=== PATIENT | female | born 1935 | race Caucasian/White ===

== ENCOUNTER 2020-11-02 22:43 | Inpatient (IN) | payer OTHER ==
[~2020-11-02] VITALS: Ht 167.6 cm; Wt 71.1 kg
--- NOTE | ~2020-11-02 | EMS ---
[place] [address] EMS Patient Care Report Name: MARI MA Room #: REG VALENCIA Mcgee#: [id number] Admission: 11/02/20 Attend Phys: Discharge: Date of : 34 Report #: [id number] THIS REPORT FOR: //name// Report Transmitted: 11/02/2020 23:29 EMS Care Summary [place], [place]/[facility] Incident [id number] @ 11/02/2020 22:07 Incident Location [address] [place] [address] Patient MARI MA Female, 84 Years 1935 Patient Address [address] [place] [address] Patient History Dementia,Hyperlipidemia, Patient Allergies Sulfonamides allergy, Patient Medications Aspirin, Lovastatin, Chief Complaint gi bleed Disposition Transported No Lights/[place] Dispatch Reason Hemorrhage/Laceration Transported To [facility] Narrative 84 y/o female found sitting in chair @ kitchen table. [facility] pumper 28 on scene. pt c/o bloody emesis. pt threw up large amount of blood on floor c 3 extra large clots. at least 500 cc or more of blood. pt has not hx of gi bleed in the past per family. pt has not had any complaints or illness recently per [address] [address] EMS Patient Care Report Name: MARI MA Room #: REG Arely#: [id number] Admission: 11/02/20 Attend Phys: Discharge: Date of : 34 Report #: [id number] family. pt's et daughter are on scene. pt has hx of dementia. pt is happy one moment et then will become combative et agitated the next. pt is alert to person. pt denies any pain or soa. family states that pt said she was hot et took her shirt off et then threw up shortly after that. pt rips b/p cuff off her arm in the house et becomes agitated when trying to get a b/p. pt insists on getting up on her own et sitting on the stretcher. pt's family states that she does get combative et is very independent c doing things. pt is situated on the stretcher et moved to unit. we are able to get a b/p in the unit. iv attempted. pt's is council et becomes agitated et frustrated that he can't hear ems talking c a mask on. we attempt to speak louder to help him hear. pt's family will meet her @ the er. pt remains stable enroot c no problems. pt care is transferred to [facility] nursing staff. Initial Vitals @22:25P: 81,R: 18,BP: 83/57,Pain: 0/10,GCS: 14,Glucose: 153,SpO2: 94,Revised Trauma: 11, @22:32P: 91,R: 18,BP: 84/66,Pain: 0/10,GCS: 14,SpO2: 94,Revised Trauma: 11, Assessments @22:17MENTAL:Person Oriented,SKIN:HEENT:Eyes: Left Pupil: 4-mm,Eyes: Right Pupil: 4-mm,Head/Face: No Abnormalities,Neck/Airway: No Abnormalities,LUNG SOUNDS:General: Vomiting,General: Other,ABDOMEN:General: Vomiting,General: Other,PELVIS//GI:No Abnormalities,EXTREMITIES:Capillary Refill: Right Upper: < 2 Sec,Capillary Refill: Right Lower: < 2 Sec,Capillary Refill: Left Upper: < 2 Sec,Capillary Refill: Left Lower: < 2 Sec,Left Arm: No Abnormalities,Right Arm: No Abnormalities,Left Leg: No Abnormalities,Right Leg: No Abnormalities,PULSE:Brachial: 2+ Normal,Carotid: 2+ Normal,Radial: 1+ Thready,NEURO:No Abnormalities, Impression Gastrointestinal hemorrhage Procedures @22:17ALS AssessmentResponse: UnchangedSucceeded@22:29Saline Lock 0cc (20 ga) Site: Antecubital-LeftResponse: UnchangedFailed Timeline 22:07,Call Received 22:07,Dispatch Notified 22:07,Dispatched 22:09,En Route 22:15,On Scene 22:17,At Patient 22:17,ALS Assessment,Response: UnchangedSucceeded, 22:25,BP: 83/57 M,PULSE: 81,RR: 18 R,SPO2: 94 Ox,ETCO2: ,B,PAIN: 0,GCS: 14, [facility] [address] [place] [address] EMS Patient Care Report Name: MARI MA Room #: REG ER Arely#: [id number] Admission: 11/02/20 Attend Phys: Discharge: Date of : 33 Report #: [id number] 22:29,Saline Lock 0cc 20 ga Site: Antecubital-Left,Response: UnchangedFailed, 22:32,BP: 84/66 M,PULSE: 91,RR: 18 R,SPO2: 94 Ox,ETCO2: ,BG: ,PAIN: 0,GCS: 14, 22:35,Depart Scene 22:39,At Destination 22:59,Call Closed Disclaimer v1.1 Copyright 2020 [employer] This EMS Care Summary contains data elements from the applicable legal record (which may be displayed differently). It is designed to provide pertinent information for the following purposes: continuity of care, clinical quality, and state data reporting. The complete legal record is available to ED staff and administrators of the receiving hospital in [employer] Patient Tracker. All data is provided "as is."
[2020-11-02] MEDS ORDERED: LOVASTATIN 20 M20 MG PO (22:46)
[2020-11-02 22:47] VITALS: BP 118/99
[2020-11-02] MEDS ORDERED: ASA81BEC PO (22:47)
[2020-11-02 22:50] VITALS: BP 118/99
[2020-11-02 23:25] LABS: ABSOLUTE NEUTROPHILS 13.1 thou/uL (1.4-8.2); BASOPHILS 0.3 % (0.0-2.0); EOSINOPHILS 1.6 % (0.0-3.0); HEMATOCRIT 27.9 % (37.0-47.0); HEMOGLOBIN 8.4 gm/dL (12.0-15.0); LYMPHOCYTES 10.6 % (24.0-44.0); MCH 22.4 pg (26.0-34.0); MCHC 30.1 g/dL (28.0-37.0); MCV 74.3 fL (80.0-100.0); MONOCYTES 6.7 % (1.0-8.0); PLATELET COUNT 508 thou/uL (150-400); POLYS 80.8 % (36.0-66.0); RBC 3.75 mil/uL (4.20-5.00); WBC 16.2 thou/uL (4.0-11.0)
[2020-11-02 23:28] LABS: CALCIUM 8.8 mg/dL (8.5-10.1); POTASSIUM 4.9 mmol/L (3.5-5.1); PROTIME 10.9 Seconds (9.3-11.4)
[2020-11-02 23:35] LABS: ALBUMIN 2.9 g/dL (3.4-5.0); TOTAL BILIRUBIN 0.3 mg/dL (0.2-1.0); TOTAL PROTEIN 6.2 g/dL (6.4-8.2)
[2020-11-03 00:51] LABS: URINE BILIRUBIN NEGATIVE (Negative); URINE BLOOD NEGATIVE (Negative); URINE CLARITY SL CLOUDY; URINE COLOR YELLOW; URINE GLUCOSE-RANDOM* NEGATIVE (Negative); URINE KETONES NEGATIVE (Negative); URINE NITRITE-REFLEX NEGATIVE (Negative); URINE PROTEIN (DIPSTICK) NEGATIVE (Negative); URINE SPECIFIC GRAVITY 1.015 (1.005-1.035); URINE UROBILINOGEN 0.2 E.U./dl (0.2-1.0)
[2020-11-03 00:56] LABS: URINE LEUKOCYTES-REFLEX 3+ (Negative)
[2020-11-03 01:10] LABS: HYALINE CASTS 0-3 Few /LPF (None Seen); MUCUS 0-3 Light strn/LPF (None Seen); SQUAMOUS 0-3 Few /LPF (0-3); URINE RBC 1-2 Rare /HPF (NONE SEEN); WBC CLUMPS Few (None Seen)
[2020-11-03 01:11] LABS: CRYSTALS None Seen /LPF (None Seen)
[2020-11-03 05:15] LABS: HEMOGLOBIN 8.1 gm/dL (12.0-15.0)
[2020-11-03 06:48] VITALS: BP 152/96
[2020-11-03 07:01] VITALS: BP 150/90
[2020-11-03 08:45] VITALS: BP 127/68
--- NOTE | 2020-11-03 10:00 | NUR ---
PATIENT ARRIVED TO UNIT VIA CART; ALERT TO SELF AND TIME BUT APPEARS CONFUSED. VITALS ARE STABLE. DENIES PAIN. NS INFUSING ON R AC, MST PATIENT. SPOUSE AT BEDSIDE. RN TO COMPLETE FULL SYSTEMS ASSESSMENT. FALL PRECAUTIONS IN PLACE. PATIENT IN SOFT RESTRAINTS FOR IV OUT. CHECKING ON NEW ORDERS. CAP REFILL & CIRCULATION W NO ISSUES. WILL CONTINUE TO MONITOR
--- NOTE | 2020-11-03 12:14 | NUR ---
PT ADMITTED RELATED TO GI BLEED. CM REVIEWED CHART AND SPOKE WITH CARE TEAM. CM MET WITH PT AND SPOUSE AT BEDSIDE THIS DAY. PT'S SPOUSE ANSWERED ALL ASSESSMENT QUESTIONS. PT APPEARED TO BE LISTINENING AND WOULD OCCASIONALL NOD OR LOOK AT CM. SPOUSE INDICATED THEY RESIDE IN A HOUSE WITH NO STEPS TO ENTER AND NO STEPS THEY NEED TO USE INSIDE. SPOUSE INDICATED THAT PT HAD BEEN INDEPENDENET WITH GAIT PT AND THAT HE HAD ASSISTED HER WITH ADLS. PT SEES DR. VIR[place]IA BLANTON OR DR. LUIS AT [facility]. SPOUSE INDICATED THAT THEY PLAN TO RETURN HOME ONCE MEDICALLY STABLE. ANTICIPATE THAT PT WILL GET SCOPE. CM FOLLOW INDICATED WITH DC PLANNING.
[2020-11-04 05:11] LABS: HEMATOCRIT 23.7 % (37.0-47.0); HEMOGLOBIN 7.5 gm/dL (12.0-15.0); MCH 22.8 pg (26.0-34.0); MCHC 31.6 g/dL (28.0-37.0); MCV 72.2 fL (80.0-100.0); RBC 3.28 mil/uL (4.20-5.00); WBC 9.9 thou/uL (4.0-11.0)
[2020-11-04 05:23] LABS: CALCIUM 8.2 mg/dL (8.5-10.1); CREATININE 0.7 mg/dL (0.6-1.0); POTASSIUM 4.2 mmol/L (3.5-5.1)
--- NOTE | 2020-11-04 06:33 | NUR ---
PT RESTING IN NAD AT THIS TIME.PT ALERT,VERY CONFUSED.UNCO-OPERATIVE W/CARE AND IMPULSIVE,FIGHTS W/STAFF DURING CARE,KICKS AND TRY TO BITE ON STAFF.REMAINS ON RESTRAINTS.AFEBRILE.NO ACTIVE BLEEDING NOTED.NO EMESIS.INCONTINENT OF BLADDER.POC IS TO CONT TO MONITOR.
[2020-11-04 07:10] VITALS: BP 144/107
[2020-11-04 12:26] LABS: % SATURATION 35 % (20-39); IRON 82 ug/dL (50-170); TIBC 232 ug/dL (250-450)
--- NOTE | 2020-11-04 16:33 | NUR ---
PT HAD EGD YESTERDAY. CARE TEAM INDICATED THAT TECHNICALLY PT IS MEDICALLY STABLE TO DISCHARGE BUT PT'S SPOUSE FELL IN HOSPITAL YESTERDAY AND IS ADMITTED ON 4S. CM MET WITH PT'S DTR DIEGO TOLBERT AT BEDSIDE THIS AFTERNOON. CM INDICATED THE ABOVE. SHE INDICATED THAT A [employer] COURTESY CLERK HAD BEEN IN THERE AND INDICATED THAT HE MOM WOULD BE HERE OVER THE WEEKEND FOR IV ABX. CM APPOLOGIZED THIS HADN'T BEEN SAID TO CM. PT HAD BEEN IN RESTRAINTS. DTR INDICATED THAT SHE HAD LEFT FLOOR AND RETURNED AND HER LUNCH TRY WAS IN FRONT OF HER AND SHE WAS RESTRAINED. DTR INDICATED THAT SHE UNTIED PT SO SHE COULD EAT. CM APPOLOGIZED AND INDICATED THAT CM WOULD NOTIFY CARE TEAM. CM INDICATED THAT CM WOULD FOLLOW UP WITH HER REGARDING DC PLANNING. CM ON 4S FOR PT'S SPOUSE STATED THAT DTR IS INTERESTED IN HAVING BOTH PARENTS GO TO [facility] FOR POST ACUTE CARE STAYS. CM FOLLOWING. THERAPY HADN'T BEEN ABLE TO WORK WITH PT AND CM MAY HAVE MISTAKENLY INDICATED THAT THEY SAW HER TO DTR. JACKELINE Harris WITH PT HAD GONE IN AND SEEN PT BUT HADN'T BEEN ABLE TO WORK WIHT HER.
[2020-11-04 16:45] VITALS: BP 141/103
[2020-11-04 20:15] VITALS: BP 115/64
--- NOTE | 2020-11-04 21:05 | NUR ---
Received awake on bed. Due medications given as prescribed. On MS, not on telemetry; no complains and signs of chest pain. crushing sensation and heaviness. Assisted in ADLs. On room air. Vital signs stable. On soft fiber restricted diet- no nausea, no vomiting and no abdominal pain noted; assisted and encouraged in eating and drinking. Falls bundle in place. Incontinent of bowel and bladdder, checked frequently and changed as needed. With NS at 100cc/hr, infusing well at R upper arm. No active bleeding noted. Pt on bilateral soft restraints on UE; frequent checks done; circulation intact; no bruises noted; tried to wean off this AM, pt tried to reach for her IV right aware; as per night RN she also tried to wean off pt last night and pt discontinued her IV thus resited on R upper arm. Pt's daughter visited today; upset that no one fed her mother for lunch- talked to GATE CLERK Navya re: this; she apologized to pt's daughter, although informed that pt was helped in eating for breakfast. Restraints discontinued this PM, pt not trying to remove IV access for now- Dr Hill informed re: this and orders obtained to d/c. Pt's daughter informed re: indication for restraints prior. Daughter also requesting if possible to not give haldol- night RN informed. CM talked to pt re: discharge disposition. daughter was stating that someone said that PT walked pt in the hallway, showed to daughter PT assessment that pt did not walk in the hallway- verified this with CM as well. With consult to Dr Jarrell- pt seen and examined pt this PM. To continue monitoring patient.
--- NOTE | 2020-11-05 03:29 | NUR ---
ASSESSMENT: PT REMAIN ALERT TO SELF. DOES SMILE AND ANSWERS TO NAME. JOHN SOFT-WRIST RESTRAINTS WERE DC'D ON DAY SHIFT. BED ALARM SET AND HOURLY ROUNDS CONTINUE. PT DOESN'T ATTEMPT TO GET OOB. DOES LIKE TO DISROBE SELF AND CAN BE RELUCTANT IN ALLOWING STAFF TO REDRESS HER. PT TUGS AT BLANKETS, GOWN AND SLOWLY TOSS THESE MATERIALS OVER THE RAILS. PT FAVORS LAYING TOWARDS LEFT SIDE. INCONT WITH FREQUENT CHUX BEING CHANGED. VSS, AFEBILE. NO BM. POOR PROGRESS TOWARDS DC GOALS. WILL CONTINUE TO MONITOR.
[2020-11-05 05:24] LABS: HEMATOCRIT 24.6 % (37.0-47.0); MCH 23.2 pg (26.0-34.0); MCHC 32.4 g/dL (28.0-37.0); MCV 71.8 fL (80.0-100.0); RBC 3.43 mil/uL (4.20-5.00); RDW 18.3 % (10.5-14.5); WBC 9.8 thou/uL (4.0-11.0)
--- NOTE | 2020-11-05 12:15 | NUR ---
PT'S DTR ARRIVED ON UNIT THIS AFTERNNON AND WAS AGAIN ANNOYED THAT IT APPEARED THAT PT HADN'T EATEN FROM THE BREAKFAST TRAY IN FRONT OF HER. INSTALLATION SUPERVISOR AND NURSE BOTH WENT AND SPOKE WITH HER. SHE ASKED FOR NURSE FLOOR BROKER. CM REACHED OUT TO JOSE RAMON AND NAUN WHO ARE BOTH OUT TO DAY CM SPOKE WITH DISK RECOATER FOX AND SHE WILL COME AND SPEAK WITH DTR. CM MET WITH DTR AND NOTIFIED HER OF THIS. CM ALSO INDICATED THAT CM HAD SPOKEN WITH CM ON 4S AND THAT SHE INDICATED INTEREST IN PARTENTS BOTH GOIGN TO D OP FOR SKILLED UPON DC. CM INDICATED THAT CM HAD FAXED REFERRAL ON MOTHER FOR REVIEW. CM FAXED REFERRAL THIS AM. DTR INDICATED THAT SHE WANTED MOTHER TRANSFERED TO 4S. CM IDNICATED THAT CM DIDN'T MAKE THOSE ARRANGEMENTS BUT THAT CM WOULD CONVEY PREFERENCE TO THOSE WHO DID. DTR INDICATED THAT CM WAS THE ONE WHO TOLD HER MOM HAD BEEN WALKING THE HALLS YESTERDAY. CM INDICATED THAT CM HAD SAID THAT PT HAD WORKED WITH THERAPY WHICH SHE HAD AND WALKED 8 STEPS WHICH JACKELINE IN ROOM CONFIRMED. CM TO FAX UPDATED CLINICAL THERAPIES WORK WITH PT THIS DAY.
[2020-11-05 15:50] VITALS: BP 145/74
--- NOTE | 2020-11-05 15:51 | NUR ---
ASSUMED CARE OF PATIENT AT 0700. ASSESSMENT CHARTED. MEDICATIONS ADMINISTERED PER AUG. PATIENT WAS COMBATIVE AND AGITATED THIS A.M. AND REFUSED VITAL SIGNS. PATIENT DID NOT APPEAR IN DISTRESS. UPON TRAY DISTRIBUTION FOR BREAKFAST, PATIENT WAS OFFERED THE MEAL. PATIENT STILL A BIT AGITATED AND REFUSED BUT DID EAT A PUDDING OFFERED BY THIS NURSE. PATIENT TOLERATED LUNCH W NO ISSUES ASSISTED BY DTR. PATIENT GOT UP TO CHAIR W PT; INCONTINENT OF URINE BUT NO BM YET THIS VISIT. HGB LEVEL STABLE THIS DAY. PATIENT BECAME DROWSY AFTER BREAKFAST AND MORE CALM FOR REMAINDER OF CARE UNDER THIS NURSE. PATIENT TRANSFERRED TO . REPORT GIVEN TO KOSTA EVANS. DTR AT BEDSIDE. PLEASE NOTE; "ABSOLUTELY NO HALDOL" PER DTR
--- NOTE | 2020-11-05 18:31 | NUR ---
Pt transferred to unit from 4W. Second covid test sent to lab. Pt awake but confused and forgetful. Fall precautions in place. Will report to rogerio RN.
[2020-11-05 19:33] VITALS: BP 132/78
--- NOTE | 2020-11-06 02:17 | NUR ---
PT WAS OBSERVED SITTING UP TRYING TO GET OUT OF THE BED AT SHIFT CHANGE.PT ALERT/CONFUSED AND FORGETFUL.PT OBSERVED TO BE IMPULSIVE AT TIMES,GETS OUT OF BED WITHOUT ASSISTANCE.PT NOT COMPLIANT WITH CARE,FIGHTS AND SCRATCHES STAFF WHLE TRYING TO PROVIDE CARE.HS SNACK AND PO FLUIDS OFFERED.PT CONT ON IVF ORDERED.STOOL SAMPLE STILL NEEDED.NO STOOL THIS SHIFT.PT SLEEPING ON HER BED AT THIS TIME.INCONT OF B&B,PERICARE DONE.COVID TEST NEGATIVE.CALL LIGHT WITHIN REACH.
[2020-11-06 04:50] VITALS: BP 148/93
[2020-11-06 07:30] VITALS: BP 181/75
--- NOTE | 2020-11-06 11:00 | NUR ---
ASSUMED CARE OF PT AT 0700 SPOKE TO PT'S DAUGHTER AT 0930 DAUGHTER AT BEDSIDE AT 1030,SHE IS ASKING WHAT THEY ARE DOING TO TREAT UTI AND WHY SHE ISN'T RECEIVING IV FLUIDS. I HAVE PUT IN A CALL TO DR. KELLY TO ASK ABOUT THESE TWO THINGS. DR. KELLY AT BEDSIDE AT 0945, HE WANTS CASE MANAGEMENT CONTACTED AND HE WANTS HER DISCHARGE TO THE FACILITY THAT THE FAMILY HAS CHOSEN.
[2020-11-06 16:15] VITALS: BP 121/86
[2020-11-06 19:24] VITALS: BP 144/85
--- NOTE | 2020-11-06 20:38 | NUR ---
ASSUMED PT CARE AT AROUND 1915. PT THEN OBSERVED VISITING WITH SPOUSE WHO HAPPENS TO BE A PATIENT IN NEXT ROOM. UPON ASSESSMENT AT THIS TIME, PT IS CALM, JUST FIDGETING WITH BEDDINGS AND TISSUE BOX. PT AGREED TO SOME APPLE JUICE, DRANK AND SAID ITS VERY NICE. SPEAKS FEW WORDS LIKE 'THAT'S VERY NICE'.SHE SMILED A LITTLE BIT, WHEN I ASKED HER TO SHOW MW HER TEETH. IVF RUNNING TO [facility], SCDS IN PLACE, SHE DENIES PAIN.
[2020-11-07 04:28] VITALS: BP 108/60
[2020-11-07 09:29] VITALS: BP 146/88
--- NOTE | 2020-11-07 13:58 | HC ---
[facility] [place] [address] CONSULTATION Name: MARI MA Room #: 446-P ADM IN M.R.#: [id number] Admission: 11/03/20 Attend Phys: Aquiles Hill MD Discharge: Date of : 34 Report #: [id number] THIS REPORT FOR: cc: Anita Nino MD, Melanie MD Kerstein,Aquiles Cat DO ~ DOC #: [id number] AQUILES Jarrell DO INPATIENT PSYCHIATRY C-L CONSULTATION PRIMARY ATTENDING: Aquiles Hill MD. CONSULTING PSYCHIATRIST: Aquiles Jarrell DO REASON FOR CONSULTATION: Delirium, dementia with behavioral disturbance. SOURCES OF INFORMATION: The patient is grossly demented, probably delirious, cannot get any meaningful history. History obtained from patient's nurse, chart review, discussion with Dr. Hill. CHIEF COMPLAINT: Unspecified. HISTORY OF PRESENT ILLNESS: This is an 84-year-old female brought to [facility] from home by EMS. The medics reported the patient complained of feeling hot, took off her shirt, and vomited a large amount of blood clots on the floor. EMS reports seeing at least 3 very large clots and some coffee-ground emesis. The patient was incontinent of stool on arrival to the ED. The patient was admitted to the Medical service. She lives at home with her who is a retired physician, and apparently, he has been admitted due to a fall according to Dr. Hill. PAST MEDICAL HISTORY: Includes hyperlipidemia and grade 1 diastolic dysfunction in the heart. PSYCHIATRIC HISTORY: Dementia. PAST SURGICAL HISTORY: Hernia repair, dilation and curettage in the uterus. SOCIAL HISTORY: No reported alcohol use, tobacco use, or recreational drug use. Lives at home with her who is her caregiver. FAMILY HISTORY: Noted in the hospitalist's evaluation as noncontributory to admission. She was admitted for an upper GI bleed, has bilateral lower extremity edema. [address] [address] CONSULTATION Name: MARI MA Room #: 446-P ADM IN ..#: [id number] Admission: 11/03/20 Attend Phys: Aquiles Hill MD Discharge: Date of : 34 Report #: [id number] Lower extremity ultrasound was negative for DVT, UTI, nausea, vomiting. The patient at this point has been seen by Gastroenterology. Findings were Ru's erosions surrounding them with a very large hiatal hernia, a gastric polyp found. Normal esophagus and duodenum. No signs of active bleeding. GI has recommended PPI b.i.d., iron, ferritin, CBC in a.m. The patient is only oriented to self. She is unable to give me any meaningful history. Her nurse advised that she was in restraints until 3:00 p.m. today. LABORATORY DATA: Laboratory reviewed for this patient, all limited to labs obtained today, H and H 7.5 and 23.7, white count 9.9, platelet count 399, H and H is down from 8.4 and 27.9 yesterday. PT 10.9, INR 1.0. Chemistries today, sodium 135, potassium 4.2, chloride 110, bicarbonate 24, anion gap 11, BUN 14, creatinine 0.7, estimated GFR 80, glucose 105, calcium 8.2. Iron 82, TIBC 232, percent sats 35, unsaturated TIBC 150, ferritin 84. Total bilirubin 0.3, AST 18, ALT 26, alkaline phosphatase 65, total protein 6.2, albumin low at 2.9. Urinalysis showed the bacteria. Urine culture at this point is pending, so unclear if there is bonafide UTI. COVID-19 Aguila test was negative. PHYSICAL EXAMINATION: VITAL SIGNS: Today, temperature 35.4, pulse 95, respirations 18, BP 141/103, O2 sat 95%. GENERAL: In bed, in her room on [address] with head of bed raised, IV intact. MENTAL STATUS EXAMINATION: General: A well-developed, age appearing female. Attention, concentration grossly impaired. Speech: Slow rate. Thought process: Nonlinear. Thought content: Gross poverty of thought, and I am unable to assess her for suicide, homicidality, auditory, visual, tactile hallucinations as well. Memory known to be impaired. Insight is impaired, judgment is impaired. Fund of knowledge below average. DIAGNOSES: Delirium due to general medical condition and major neurocognitive disorder, likely Alzheimer's etiology. FORMULATION: An 84-year-old female admitted for upper GI bleed. The patient has had agitation requiring restraint in her medical floor room. RECOMMENDATIONS: At this time, I would start Haldol 0.5 mg q. 8 hours IV scheduled at this point to hasten clearance of delirium. Continue to treat the patient's general medical condition. I am concerned as Dr. Hill was, if her is now disabled due to fall. The patient certainly needs 24/ care and supervision and cannot be discharged from this hospital, so that is assured. I will check on the patient on Sunday, reminder there will be no consultation-liaison psychiatry coverage on and [address] Matute will resume the service on 11/08/2020. [address] [address] CONSULTATION Name: MARI MA Room #: 446-P ADM IN M.R.#: [id number] Admission: 11/03/20 Attend Phys: Aquiles Hill MD Discharge: Date of : 34 Report #: [id number] Time spent on this case is no greater than 45 minutes. DO HITESH Munoz/JUD/TAJ <ELECTRONICALLY SIGNED> By: Aquiles Jarrell DO 11/07/20 1358 [id number] Aquiles Jarrell DO /nt
--- NOTE | 2020-11-07 15:24 | NUR ---
PT RESTING COMFORTABLY IN BED/CHAIR. PT AFEBRILE, ADEQUATE UOP (INCONTINENT), NO BM, POOR APPETITE. NO NAUSEA/VOMITING. PT AND DAUGHTER (DPOA) HAS BEEN THOUROUGHLY UPDATED AND EDUCATED ON PT CONDITION AND POC. PT NOT PROGRESSING TOWARDS POC.
[2020-11-07 18:05] VITALS: BP 157/92
[2020-11-07 20:35] VITALS: BP 160/88
--- NOTE | 2020-11-08 02:09 | NUR ---
ASSUMED PT CARE AT 1900.PT WAS OBSERVED LYING DOWN ON HER BED WITH HER EYES CLOSED AT SHIFT CHANGE.HS MEDS GIVEN WHEN PT WOKE UP.PT INCONT.NAHUN CARE DONE WITH EACH INCONT.PO FLUIDS ENCOURAGED.PT NOT COMPLIANT WITH CARE.BLE EDEMA.NO BEHAVIORS NOTED FROM PT SO FAR.IVF ORDERED.CALL LIGHT WITHIN REACH.
[2020-11-08 06:00] VITALS: BP 152/102
[2020-11-08 08:02] VITALS: BP 154/82
[2020-11-08 12:09] VITALS: BP 141/66
[2020-11-08 15:00] VITALS: BP 130/52
[2020-11-08 15:32] VITALS: BP 120/69
--- NOTE | 2020-11-08 17:35 | NUR ---
Pateint alert amd orinted to only self, on room air, q2 turn, aissist with feeding, vital signs stable, and afbriele. bed alarm on, call light with in reach, will continue to montior.
--- NOTE | 2020-11-08 17:44 | NUR ---
RN spoke to Dr. Mari of patient vital signs and temp of 99.5F. that patient daughter and is concerned that patient isn't doing well. Orderes received for tylenol PRN q6. RN asked if there is anything I can tell the daughter now for you since she is so concerned. Physican stated will be rounding later and he can speak wtih them. Family updated.
[2020-11-08 20:25] VITALS: BP 155/106
--- NOTE | 2020-11-08 22:23 | EEG ---
[facility] [place] [address] ELECTROENCEPHALOGRAM Name: MARI MA Room #: 446-P ADM IN M.R.#: [id number] Admission: 11/03/20 Attend Phys: Jason Hill MD Discharge: Date of : 34 Report #: [id number] THIS REPORT FOR: //name// DOC #: [id number] Tremaine Cheek MD DATE OF SERVICE: 11/06/2020 This patient is being evaluated for altered mental status. EEG was done by placing the electrode by standard 10-20 system of electrode placement. Both referential and sequential montages were used for recording. Background activity in this patient's EEG is about 6-7 Hz and 30 microvolt. It is a poorly formed background activity. Background activity is a symmetrical photic stimulation is unremarkable. Throughout the record, no active epileptiform activity was noticed. IMPRESSION: This is an abnormal EEG because it is disorganized and poorly formed. There is a nonspecific abnormality which can occur with encephalopathy, effect of psychotropic medication, dementia, etc. Clinical correlation is recommended. Tremaine Cheek MD PK/NATALIA <ELECTRONICALLY SIGNED> By: Tremaine Cheek MD 11/08/20 [id number] Mya Cheek MD /nt
--- NOTE | 2020-11-08 22:23 | HC ---
[facility] [place] [address] CONSULTATION Name: MARI MA Room #: 446-P ADM IN M.R.#: [id number] Admission: 11/03/20 Attend Phys: Jason Hill MD Discharge: Date of : 34 Report #: [id number] THIS REPORT FOR: cc: Anita Nino MD, Melanie MD Khosla,Tremaine Freeman MD ~ DOC #: [id number] Tremaine Cheek MD DATE OF SERVICE: 11/06/2020 HISTORY OF PRESENT ILLNESS: An 84-year-old female patient who was seen by me for altered mental status. The patient was discussed with the nurse and subsequently with the daughter. I reviewed the patient's record and the combined history I get is that this patient has a longstanding history of dementia. She is progressively becoming worse. She lives with her daughter. She needs a lot of help in day-to-day activities. She was admitted with hematemesis and large amount of blood clots. Daughter thinks the patient is worse now than she was before. I have never seen her before, so I do not know what her baseline is. REVIEW OF SYSTEMS: Positive for hyperlipidemia and dementia. Dementia looks advanced. Rest of the 14-point review of system is noncontributory. At this time, she is admitted with lower extremity edema and urinary tract infection. PAST MEDICAL HISTORY: Positive for dementia. FAMILY HISTORY: Unremarkable. SOCIAL HISTORY: She lives with her daughter. I examined her earlier today and I just examined her again. She wakes up this evening, but she can barely follows simple commands and that is the best mental status I can get that makes the examination very difficult. She does not tell me what month, what day it is. She does have some speech, but this is pretty mild. Cranial nerve examination was attempted, but was impossible to carry out, looks like she can move all 4 extremities, but she does it very little. She did not cooperate with the sensory or cerebellar sign. She has a loud murmur in the heart. I do not know how long it has been present. There is no meningeal sign. Blood pressure is 144/85, respirations 18, pulse is 109, temperature is 98.6. She is admitted with edema. Pulses are difficult to palpate. She is reasonably built individual. No respiratory difficulty was noted. LABORATORY DATA: White count is normal. Urinalysis does show UTI. I got a stat CT scan done in this patient, which was unremarkable. We will check an EEG. [address] [address] CONSULTATION Name: MARI MA Room #: 446-[facility] IN M.R.#: [id number] Admission: 11/03/20 Attend Phys: Jason Hill MD Discharge: Date of : 34 Report #: [id number] IMPRESSION: 1. Advanced dementia. 2. Loud murmur in the heart. I am not sure what the etiology is. RECOMMENDATION: I think the patient's dementia has become worse. She probably decompensated with all the problems going on, especially UTI. Not much can be done and I will talk to the daughter tomorrow. The best will be to carry out the conservative care in this patient. She does have a loud murmur in the heart. I am not sure how long it has been present and what we need to do and will defer that to the hospitalist. Thank you very much for this referral. MD GINI Best/FLORINA <ELECTRONICALLY SIGNED> By: Tremaine Cheek MD 11/08/202222 1904 32 Tremaine Cheek MD /nt
[2020-11-09 04:50] VITALS: BP 155/83
--- NOTE | 2020-11-09 05:30 | NUR ---
UPON SHIFT REPORT, AT BASELINE PT DIFFICULT TO AROUSE, SLIGHTLY AROUSING TO STERNAL RUBBING. PT OBSERVED WITH RESTLESSNESS OF BUE WITH TACTILE STIMULATION. UPON SHIFT ASSESSMENT, PT DROWSY, AROUSING TO VERBAL STIMULATION. FLACC OF 1 PT OBSERVED WITH GRIMACE. WHEN PROMPTED, PT DENIES PAIN, DID NOT RESPOND TO OTHER PROMPTS. PT OBSERVED INTERMITTENTLY WITH RESTLESSNESS AND RESPONDING TO INTERAL STIMULI, AUDITORY AND VISUAL. OTHERWISE, PT RESTING WITHOUT INTERRUPTION OR OBSERVATION OF PAIN, DISCOMFORT, OR SOB. PT WITHOUT PO INTAKE OF FLUIDS, MAINTAINS SOFT FIBER RESTRICTED DIET. PT WITHOUT NAUSEA OR EMESIS. PT INCONTINENT OF BOWEL AND BLADDER, REDDNESS NOTED TO NAHUN AREA, ZGUARD APPLIED. UPON ROUNDING, PT NOTED TO HAVE HIVES TO NECK AND BLE. ONCALL BIODIESEL ENGINEERING MANAGER NOTIFIED, EMAR REVIEWED, NO ORDERS RECEIVED. PT ENCOURAGED TO NOTIFY STAFF FOR ALL NEEDS, CALL LIGHT WITHIN REACH, BED ALARM ON, BED LOCKED IN LOWEST POSITION, ROOM REMAINS NEAR NURSES STATION, FREQUENT MONITORING WILL CONTINUE.
[2020-11-09 07:25] VITALS: BP 151/78
--- NOTE | 2020-11-09 09:44 | NUR ---
ASSUMED PT CARE THIS AM. PT IS ALERT & ORIENTED X1 TO SELF ONLY AND DROWSY THIS AM. PT HAS IV SITE ON R HAND. PT IS ON MECHANICAL ALTERED CHOPPED DIET. GIVEN MEDICATION WITH APPLE SAUCE. NOTED REDNESS ON CHEST, BILATERAL LE AND BUTTOCKS. GIVEN MOISTURIZER AND INFORMED DR. PT IS INCONTINENT BLADDER AND BOWEL. PT IS ON ROOM AIR. PT AT THE OTHER ROOM AND VISITED PT THIS AM. PT ON THE BED, BED ON THE LOWEST POSITION, SIDE RAILS UP, CALL LIGHT WITHIN REACH. WILL CONTINUE TO MONITOR PT OFTEN. FOLLOW POC.
--- NOTE | 2020-11-09 14:45 | NUR ---
ON-GOING ASSESSMENT: CM REVIEWED CHART AND SPOKE WITH ATTENDING. INSURANCE AUTH IS STILL PENDING WITH YAMILKA OF [employer]. CM UPDATED [facility] AND ALSO FAXED UPDATED CLINICAL. AWAITING INSURANCE AUTH AT THIS TIME FOR [facility]KA [facility]. CM NOTIFIED PATIENTS DAUGHTER ODELL WHO IS AT THE BEDSIDE. REPORT FOR [facility]AM[facility]KA [facility]: [phone] FAX:[phone]
[2020-11-09 15:40] VITALS: BP 150/112
--- NOTE | 2020-11-09 19:06 | PATH ---
[facility] [place] [address] PATHOLOGY RPT PROCEDURE Name: MARI MA Room #: 446-P ADM IN M.R.#: [id number] Admission: 11/03/20 Date of : 33 Discharge: Report #: [id number] Path Case #: [id number] [facility] Accession Number: [id number] . 01 Material submitted: . PART A: gastrointestinal site - GASTRIC POLYP BIOPSY PART B: gastrointestinal site - GASTRIC BIOPSY . 01 Clinical history: . UPPER GI BLEED,URINARY TRACT INFECTION EGD/HEMATEMESIS/GASTRITIS/GASTRIC POLYP . 02 Diagnosis: A. Polyp, gastric polyp, endoscopic biopsy: - Compatible with an inflamed hyperplastic polyp. - Moderate to marked acute inflammation as well as chronic inflammation present. - Negative for dysplasia or malignancy. . B. Gastric mucosa, gastric to rule out H. pylori, endoscopic biopsy: - Moderate to marked active gastritis. - Negative for intestinal metaplasia, atrophy or dysplasia. - No definite Helicobacter pylori organisms present on the properly controlled immunohistochemical stain, see comment. . (IUV:product safety associate; 11/09/2020) MBR 11/09/2020 1541 Local . 02 Comment: B. An intensive search for Helicobacter pylori-like organisms is negative. Absence of such organisms does not entirely exclude the possibility and may be due to sampling. Other possible etiologies may include chemical gastritis, autoimmune gastritis, gastritis associated with inflammatory bowel disease. Please correlate with clinical, endoscopic, and microbiological studies if clinically indicated. (IUV:product safety associate; 11/09/2020) . 02 Electronically signed: . Ludy Alvarez MD, Pathologist NPI- [id number] . 01 Gross description: . A. Received in formalin labeled "Mari Ma, gastric polyp biopsy" are 2 fragments of rasmussen-brown soft tissue measuring 0.4 x 0.3 x 0.2 cm and 0.6 x 0.4 x 0.3 cm. The specimen is submitted entirely in A1. . B. Received in formalin labeled "Mari Ma gastric biopsy rule out [address] [address] PATHOLOGY RPT PROCEDURE Name: MARI MA Room #: 446-P ADM IN M.R.#: [id number] Admission: 11/03/20 Date of : 33 Discharge: Report #: [id number] Path Case #: [id number] H. pylori" are 2 fragments of rasmussen-brown soft tissue measuring 0.6 x 0.3 x 0.2 cm and 0.5 x 0.3 x 0.2 cm. The specimen is submitted entirely in B1. ([facility]; 11/06/2020) GZA/GZA 11/06/2020 1012 Local . 02 Pathologist provided ICD-10: K29.00, K29.50, K29.60 . 02 CPT . 134411, [id number], [id number] Specimen Comment: A courtesy copy of this report has been sent to [phone], [phone] Specimen Comment: 2007, , Specimen Comment: Report sent to , DR BARBOZA, DR KELLY / DR BLANTON Performed at: [address], [place] [id number] MD Edgar Lentz MD Phone: [phone] Performed at: [address] [id number] MD Ludy Alvarez MD Phone: [phone]
[2020-11-09 19:41] VITALS: BP 155/92
[2020-11-10 08:22] VITALS: BP 149/67
[2020-11-10] MEDS ORDERED: PEPCID20 MG PO (09:02)
--- NOTE | 2020-11-10 09:30 | NUR ---
ON-GOING ASSESSMENT: ZURI SPOKE WITH JEFFY AT [facility] WHO REPORTS THEY RECEIVED INSURANCE AUTH TO ACCEPT PATIENT TO [facility] TODAY. CM FAXED DISCHARGE PAPERWORK TO [facility] AND CONFIRMED THEY RECEIVED IT. CHART COPY ORDERED AND DISCHARGE PAPERWORK IS INCLUDED. CM LEFT FOR PATIENTS DAUGHTER ODELL AND ALSO NOTIFIED PTS WHO IS ALSO GOING TO [place] TODAY. (HE REPORTS HE SPOKE WITH DAUGHTER AND ALSO NOTIFIED HER). TRANSPORTATION HAS BEEN ARRANGED FOR 1400 AND BEDSIDE RN AWARE AND HAS THE NUMBER FOR REPORT. CASE CLOSED.
--- NOTE | 2020-11-10 11:54 | NUR ---
ASSUMED CARE OF PT AT 0700 THIS MORNING. PT IS GOING TO BE TRANSPORTED TO SNF APPROX 1500 THIS AFTERNOON. PT IS SLEEPING DURING REPORT BUT WILL AWAKEN BY HER NAME CALLED. PT IS GENREALLY CONFUSED, AND ALERT TO NAME ONLY.HX OF DEMENTIA, Q2 TURNS. LUNGS SOUND CONGETSTED THROUGOUT THE LOWER [place]. ABD SOFT NONTENDER. ACTIVE BOWEL SOUNDS. CR<3SEC X4. SKIN INTACT WITH REDNESS TO RIGHT BUTTOCKS. BARRIER CREAM APPLIED. ASSESSMENTS OTHERWISE UNREMARKABLE. CALL LIGHT AND OTHER NEEDS PLACED WITHIN REACH, IV PATENT, VSS, MEDS AND TX GIVEN SCHEDULED.
--- NOTE | 2020-11-10 14:44 | NUR ---
RN RECEIVED ORDER PT TO DC TO SNF YAMILKA, PT 'S CONDITION WAS STABLE, RN HAD GIVING REPORT TO SNF, TRANSPORTATION (USE W/C ) EQUIPMENT PROCESSOR PT TO SNF ABOUT 1410PM.
== END 2020-11-10 14:35 | DRG 377 ==
LOC: ER 22:43 → EROBS 11-03 02:08 → 4W 11-03 02:08 → 4S 11-05 15:42
PROVIDERS: Emergency Medicine Emergency Medical Services; Nurse Practitioner; Nurse Practitioner Family; Psychiatry & Neurology Neuromuscular Medicine; ADMIT Hospitalist; ATTEND Hospitalist
PROC: 0DB68ZX Excision of Stomach, Via Natural or Artificial Opening Endoscopic, Diagnostic (ICD-10-PCS; principal; 2020-11-03)
DX: K29.71 Gastritis, unspecified, with bleeding (principal); N17.0 Acute kidney failure with tubular necrosis; D62 Acute posthemorrhagic anemia; F05 Delirium due to known physiological condition; G93.40 Encephalopathy, unspecified; K25.4 Chronic or unspecified gastric ulcer with hemorrhage; Z20.822 Contact with and (suspected) exposure to COVID-19; E78.5 Hyperlipidemia, unspecified; F03.90 Unspecified dementia, unspecified severity, without behavioral disturbance, psychotic disturbance, mood disturbance, and anxiety; F01.50 Vascular dementia, unspecified severity, without behavioral disturbance, psychotic disturbance, mood disturbance, and anxiety; R01.1 Cardiac murmur, unspecified; K44.9 Diaphragmatic hernia without obstruction or gangrene; R53.81 Other malaise; R13.10 Dysphagia, unspecified; Z79.82 Long term (current) use of aspirin; Z88.2 Allergy status to sulfonamides; Z79.899 Other long term (current) drug therapy
CPT/HCPCS: 10040; 10195; 62110; 62900; 70005